=== PATIENT | male | born 1960 | race Caucasian/White ===

== ENCOUNTER 2024-11-18 13:53 | Outpatient (CLI) | payer OTHER, SELFPAY ==
--- NOTE | ~2024-11-18 | XR_ITS ---
Lumbosacral Spine: AP and lateral views Clinical History: Pain Findings: The normal lordotic curve is maintained. The vertebral bodies and posterior elements are i ntact. Mild degenerative disc changes are present throughout the lumbar spine. There is moderate to a dvanced facet arthropathy, especially from L3 through S1. The sacroiliac joints are normally outlined . Impression: Extensive facet arthropathy. Mild degenerative disc changes. Reviewed, dictated and finalized at location M. Impression: Extensive facet arthropathy. Mild degenerative disc changes.
--- OUTSIDE RECORDS SUMMARY | 2024-11-18 14:33 | XMS_ITS | Referral Summary ---
Author Organization [facility] Address [address] [place] [address] Care Team Providers Care Discharge Specialist Name Role Phone Evangelist Wahl DO Primary Care Provider [phone] Allergies No known active allergies Medications acyclovir (ZOVIRAX) 400 mg tablet Take 400 mg by mouth daily 11/04/2021 Active atorvastatin (LIPITOR) 40 mg tablet Take 40 mg by mouth daily 11/04/2021 Active OneTouch Ultra Test strip USE TO TEST BLOOD SUGAR ONCE DAILY DIRECTED 11/22/2021 Active Farxiga 10 mg tablet Take 10 mg by mouth daily 11/07/2021 Active glipiZIDE (GLUCOTROL) 5 mg tablet Take 5 mg by mouth every morning 11/05/2021 Active lisinopriL (PRINIVIL,ZESTR IL) 10 mg tablet Take 10 mg by mouth daily 11/05/2021 Active metFORMIN XR (GLUCOPHAGE XR) 500 mg 24 hr tablet Take 500 mg by mouth 2 (two) times a day 11/22/2021 Active MULTIVITAMIN ORAL Take by mouth Active cholecalciferol (VITAMIN D-3) 400 unit capsule Active ascorbic acid (VITAMIN C) 100 mg tablet Take 100 mg by mouth daily Active cyanocobalamin (Vitamin B-12) 500 mcg tabletIndicatio ns:Prevention of Vitamin B12 Deficiency Take 500 mcg by mouth daily Active HYDROcodone-lexi taminophen (NORCO) 5-325 mg per tabletIndicatio ns:Pain Take 1-2 tablets by mouth every 6 (six) hours as needed for pain 30 tablet 12/25/2021 Active Active Problems Problem Noted Date Diagnosed Date Pain in both hands 12/03/2021 Trigger middle finger of right hand 12/03/2021 Overview (12/03/2021): Added automatically from request for surgery [id number] Trigger middle finger of left hand 12/03/2021 Overview (12/03/2021): Added automatically from request for surgery [id number] Trigger ring finger of left hand 12/03/2021 Overview (12/03/2021): Added automatically from request for surgery [id number] Social History Tobacco Use Types Packs/Day Years Used Date Smoking Tobacco: Former Cigarettes Q uit: 2013 Smokeless Tobacco: Never AUDIT-C Answer Date Recorded Q1: How often do you have a drink containing alc ohol? 2-3 times a week 12/19/2021 Q2: How many drinks containi ng alcohol do you have on a typical day when you are drinking? 1 or 2 12/19/2021 Q3: How often do you have si x or more drinks on one occasion? 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 Not on file Not on file Last Filed Vital Signs Vital Sign Reading Time Taken Comments Blood Pressure 126/78 12/25/2021 9:14 AM CDT Pulse 81 12/25/2021 9:14 AM CDT Temperature 36.3 C (97.3 F) 12/25/2021 8:59 AM CDT Respiratory Rate 16 12/25/2021 9:14 AM CDT Oxygen Saturation 95% 12/25/2021 9:14 AM CDT Inhaled Oxygen Concentration - - Weight 129 kg (284 lb 7 oz) 12/25/2021 6:33 AM C DT Height 180.3 cm (5' 11) 12/25/2021 6:33 AM CDT Body Mass Index 39.67 12/25/2021 6:33 AM CDT Plan of Treatment Not on file Insurance [facility] Address: [place] [address] [facility] Address: [place] [address] Care Teams Discharge Specialist Relationship Specialty Start Date End Date Evangelist Wahl DO PCP - General Internal Medicine 11/21/21
--- OUTSIDE RECORDS SUMMARY | 2024-11-18 14:33 | XMS_ITS | Clinical Summary ---
Author Organization [facility] Address [address] [place] [address] Care Team Providers Care Fisher Eel Spear Name Role Phone Evangelist Wahl DO Primary Care Provider [phone] Allergies No known active allergies Medications acyclovir [...] (12/03/2021): Added automatically from request for surgery [id number] Trigger middle finger of left hand 12/03/2021 Overview (12/03/2021): Added automatically from request for surgery [id number] Trigger ring finger of left hand 12/03/2021 Overview (12/03/2021): Added automatically from request for surgery [id number] Surgical History Surgery Date Site/Laterality Comments HERNIA REPAIR HYDROCELE EXCISION / REPAIR PLANTAR'S WART EXCISION TRIGGER FINGER RELEASE 12/25/2021 Bilateral RT.LONG, LT.LONG & LT.RING FTS RELEASE Medical History Medical History Date Comments Sleep apnea Hiatal hernia Hypertension Diabetes mellitus (HCC) Peripheral neuropathy Allergic rhinitis Type 2 diabetes mellitus (HCC) Family History Medical History Relation Name Comments Hypertension Father Diabetes Mother Relation Name Status Comments Father Mother Social History Tobacco Use Types Packs/Day Years [...] on file 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 Gender Identity Not on file Sexual Orientation Not on file 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 Not on file Not on file Obstetrics History Last Filed Vital Signs Vital Sign Reading [...] 12/25/2021 6:33 AM CDT Plan of Treatment Health Maintenance Due Date Last Done Comments Colon Cancer Screening-Colonoscopy 1960 Depression Screening 1960 Hepatitis C Screening 1960 Prostate Cancer Screening-PSA 1960 DTaP/Tdap/Td Vaccine (1 - Tdap) 1971 Hepatitis B Screening 1978 Regular Well Visit/Exam 18-64 1978 Zoster Vaccine (1 of 2) 2010 Covid-19 Vaccine (3 - 2023-2 5 season) 2024 09/30/2020, 09/08/2020 Influenza Vaccine (Season Ended) 2025 04/25/2015 Pneumococcal vaccine <65 Aged Out No longer eligible based on patient's age to complete this topic Insurance [facility]US [facility] Address: [facility] [address] [place] [address] [facility] CHOICE PLUS [facility] HMO/PPO Address: [facility] [id number] [place] [address] Care Teams Fisher Eel Spear Relationship Specialty Start Date End Date Evangelist Wahl DO PCP - General Internal Medicine 11/21/21
== END 2024-11-18 13:54 | disposition home or self-care (01) ==
PROVIDERS: PCP Family Medicine; Visit Provider Family Medicine
DX: M51.369 Other intervertebral disc degeneration, lumbar region without mention of lumbar back pain or lower extremity pain (principal)
CPT/HCPCS: 72100

== ENCOUNTER 2024-12-13 15:44 | Outpatient (CLI) | payer OTHER, SELFPAY ==
--- NOTE | ~2024-12-13 | MR_ITS ---
MRI of the lumbar spine Clinical History: Back pain Technique: Axial T2-weighted images, and sagittal T1-weighted, T2-weighted, and T2 fat-sat images wer e acquired. Findings: There is no fracture or subluxation of the lumbar spine. Vertebral bodies maintain alignmen t. No suspicious bone marrow signal abnormality seen. At L1-L2, there is no significant disc bulge or herniation. There is moderate facet hypertrophy. No s georgina canal stenosis or neural foraminal narrowing. At L2-L3, there is minimal disc bulge with moderate facet arthropathy. No central canal stenosis or n eural foraminal narrowing. L3-L4, there is minimal disc bulge with moderate facet arthropathy. No central canal stenosis or neur al foraminal narrowing. At L4-L5, there is minimal disc bulge with severe facet arthropathy. No central canal stenosis or evelyn ral foraminal narrowing. At L5-S1, there is minimal disc bulge with severe facet arthropathy. No central canal stenosis or evelyn ral foraminal narrowing. Paravertebral soft tissues are unremarkable. Impression: Mild degenerative spondylosis overall, as above. Reviewed, dictated and finalized at location M. Impression: Mild degenerative spondylosis overall, as above.
== END 2024-12-13 15:45 | disposition home or self-care (01) ==
LOC: MICIMG 15:45
PROVIDERS: PCP Family Medicine; Visit Provider Family Medicine
DX: M47.896 Other spondylosis, lumbar region (principal)
CPT/HCPCS: 72148

== ENCOUNTER 2024-12-24 01:20 | Day surgery (SDC) | payer OTHER, SELFPAY ==
[2024-12-07 12:53] VITALS: BMI 40.1
--- OUTSIDE RECORDS SUMMARY | 2024-12-24 01:24 | XMS_ITS | Clinical Summary ---
Author Organization [facility] Address [address] [place] [address] Care Team Providers Care Tear Down Worker Name Role Phone Evangelist Wahl DO Primary Care Provider [phone] Allergies No known active allergies Medications acyclovir [...] (12/03/2021): Added automatically from request for surgery [id number] Trigger middle finger of left hand 12/03/2021 Overview (12/03/2021): Added automatically from request for surgery [id number] Trigger ring finger of left hand 12/03/2021 Overview (12/03/2021): Added automatically from request for surgery [id number] Surgical History Surgery Date Site/Laterality Comments HERNIA [...] on file 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
--- OUTSIDE RECORDS SUMMARY | 2024-12-24 01:24 | XMS_ITS | Referral Summary ---
Author Organization [facility] Address [address] [place] [address] Care Team Providers Care Die Maintenance Name Role Phone Evangelist Wahl DO Primary Care Provider [phone] Allergies No known active allergies Medications acyclovir [...] (12/03/2021): Added automatically from request for surgery [id number] Trigger middle finger of left hand 12/03/2021 Overview (12/03/2021): Added automatically from request for surgery [id number] Trigger ring finger of left hand 12/03/2021 Overview (12/03/2021): Added automatically from request for surgery [id number] Social History Tobacco Use Types Packs/Day Years [...] on file 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
[2024-12-24 06:20] VITALS: BMI 40.1
[2024-12-24] MEDS: LACTATED RINGERS 1,000 ML 150 ML IV CONT (06:32)
[2024-12-24 06:45] VITALS: BP 130/70; PULSE 85; RESP 20; TEMP 36.2; O2SAT 97
--- NOTE | 2024-12-24 07:18 | WPDANESEPPF ---
Anes - Initial Pre Proc Eval Procedure: Operation Date: 12/24/24 07:30 Proposed Procedures p Screening Colonoscopy - Christiano Herrera MD Date/Time: 12/24/24 07:18 Surgeon: Christiano Herrera MD Pre Op Diagnosis: Neoplasm screening Patient Data Age: 64 Gender: M Height: 1.78 m Weight: 127 kg Last Vital Signs Temp 36.2 C L 12/24/24 06:45 Pulse 85 12/24/24 06:45 Resp 20 12/24/24 06:45 BP 130/70 12/24/24 06:45 Pulse Ox 97 12/24/24 06:45 O2 Del Method Room Air 12/24/24 06:45 Allergies Allergy/AdvReac Type Severity Reaction Status Date / Time guaifenesin Allergy Mild HYPERACTIVE Verified 12/24/24 06:18 WITH TREMORS Home Medications ?Medication ?Instructions ?Recorded ?Confirmed ?Type blood sugar diagnostic (AventeonTouch #100 ea 11/22/21 07/02/22 Rx Ultra Test strips) lancets 33 gauge (OneTouch Delica #100 ea 11/22/21 07/02/22 Rx Lancets) acyclovir 400 mg tablet 400 mg PO DAILY #90 tabs 05/03/24 12/24/24 Rx finasteride 5 mg tablet 5 mg PO DAILY #90 tabs 06/18/24 12/24/24 Rx atorvastatin 40 mg tablet See Rx Instructions .Route 09/27/24 12/24/24 Rx .COMPLEX #90 tabs Ozempic 0.25 mg or 0.5 mg (2 0.25 mg (0.187 mL) subcut WEEKLY 10/01/24 12/24/24 Rx mg/1.5 mL) subcutaneous pen #3 mL injector (semaglutide) cyclobenzaprine 10 mg tablet 10 mg PO TID PRN muscle spasm #60 11/16/24 12/07/24 Rx tabs Farxiga 10 mg tablet See Rx Instructions .Route 11/17/24 12/24/24 Rx (dapagliflozin propanediol) .COMPLEX #90 tabs metformin 500 mg tablet See Rx Instructions .Route 12/21/24 12/24/24 Rx .COMPLEX #180 tabs glipizide 5 mg tablet 5 mg PO DAILY #90 tabs 12/23/24 12/24/24 Rx lisinopril 10 mg tablet See Rx Instructions .Route 12/23/24 12/24/24 Rx .COMPLEX #90 tabs Laboratory Tests 12/24/24 06:31 POC Capillary Glucose 192 H mg/dl (65-105) Patient hx anesthesia problems: none Family hx anesthesia problems: none Results Review: All pre-operative results and documents have been reviewed as part of the pre-operative evaluation. [facility] Family History Family History Mother Family history of diabetes mellitus in first degree relative Sibling Family history of diabetes mellitus in first degree relative Social History Social History Smoking packs per day: 1.5 Smoking cigarettes per day: 30.0 Years smoked: 20 Smoking pack-years: 30.00 Smoking status: Former smoker Tobacco type: cigarettes Smoking end date: 07/11/12 Alcohol intake: current Drinks per week: 12 Alcohol use details: beer on the weekends Substance use: never Substance use type: does not use Lack of Transportation: No Lack of Food: Never True Current Housing: I Have Housing Concerned About Future Housing: No Difficulty Paying Gas/Electric Bills: No Difficulty Paying for Meds: No Currently Unemployed: No Education: High School Diploma/GED Difficulty w/ Childcare or Family Care: No Living arrangements: alone Anes - Eval Final PreProcedure Day of Procedure 12/24/24 07:18 Patient weight: morbidly obese Heart: regular rate and rhythm Lungs: decreased breath sounds Airway: Mallampati scale class III Neurological: alert and oriented Last oral intake: >/= 8 hours ASA classification: III Emergent: no Anesthetic plan: proceed Anesthesia type and monitoring: general GIVS and standard monitoring Results Review: All pre-operative results and documents have been reviewed as part of the pre-operative evaluation. Informed Consent: The patient's anesthetic plan and its attendant risks and benefits were discussed with the patient/family/POA. Questions were solicited and answers provided to the satisfaction of the patient/family/POA.
--- NOTE | 2024-12-24 07:24 | PM.HPGS ---
History of Present Illness History of Present Illness Consent: Risks, benefits, and alternatives have been discussed and questions answered. Patient agrees to proceed with procedure. Chief complaint: Neoplasm screening Narrative: Hector Gonzalez is a 64 year old male here for screening colonoscopy, last one more than 10 years ago Review of Systems Review of Systems: All systems reviewed & are unremarkable except as noted in HPI and below PMFSH Family History Family History Mother Family history of diabetes mellitus in first degree relative Sibling Family history of diabetes mellitus in first degree relative Social History Social History Smoking packs per day: 1.5 Smoking cigarettes per day: 30.0 Years smoked: 20 Smoking pack-years: 30.00 Smoking status: Former smoker Tobacco type: cigarettes Smoking end date: 07/11/12 Alcohol intake: current Drinks per week: 12 Alcohol use details: beer on the weekends Substance use: never Substance use type: does not use Lack of Transportation: No Lack of Food: Never True Current Housing: I Have Housing Concerned About Future Housing: No Difficulty Paying Gas/Electric Bills: No Difficulty Paying for Meds: No Currently Unemployed: No Education: High School Diploma/GED Difficulty w/ Childcare or Family Care: No Living arrangements: alone Meds Home Medications and Allergies Home Medications ?Medication ?Instructions ?Recorded ?Confirmed ?Type blood sugar diagnostic (OneTouch #100 ea 11/22/21 07/02/22 Rx Ultra Test strips) lancets 33 gauge (OneTouch Delica #100 ea 11/22/21 07/02/22 Rx Lancets) acyclovir 400 mg tablet 400 mg PO DAILY #90 tabs 05/03/24 12/24/24 Rx finasteride 5 mg tablet 5 mg PO DAILY #90 tabs 06/18/24 12/24/24 Rx atorvastatin 40 mg tablet See Rx Instructions .Route 09/27/24 12/24/24 Rx .COMPLEX #90 tabs Ozempic 0.25 mg or 0.5 mg (2 0.25 mg (0.187 mL) subcut WEEKLY 10/01/24 12/24/24 Rx mg/1.5 mL) subcutaneous pen #3 mL injector (semaglutide) cyclobenzaprine 10 mg tablet 10 mg PO TID PRN muscle spasm #60 11/16/24 12/07/24 Rx tabs Farxiga 10 mg tablet See Rx Instructions .Route 11/17/24 12/24/24 Rx (dapagliflozin propanediol) .COMPLEX #90 tabs metformin 500 mg tablet See Rx Instructions .Route 12/21/24 12/24/24 Rx .COMPLEX #180 tabs glipizide 5 mg tablet 5 mg PO DAILY #90 tabs 12/23/24 12/24/24 Rx lisinopril 10 mg tablet See Rx Instructions .Route 12/23/24 12/24/24 Rx .COMPLEX #90 tabs Allergies Allergy/AdvReac Type Severity Reaction Status Date / Time guaifenesin Allergy Mild HYPERACTIVE Verified 12/24/24 06:18 WITH TREMORS Vital Signs Vital Signs - 24 hr 12/24/24 06:45 Temperature 97.2 F L Pulse Rate 85 Respiratory Rate 20 Blood Pressure 130/70 Pulse Oximetry 97 Oxygen Delivery Room Air Exam Const: General: comfortable and no acute distress HENMT: Face/Nose/Sinus: Normal nares present Eyes: General: appearance normal, both eyes and all related structures Neck: Neck: no JVD Resp: Auscultation: clear to auscultation bilaterally Cardio: Rate: regular rate Rhythm: regular rhythm GI: Inspection: non-distended GI Palp: Yes Soft to palpation Skin: General skin exam: normal color Neuro: Speech: normal speech Extrem: General: normal to inspection Psych: Mental Status: mental status grossly normal Assessment and Plan Assessment and plan (1) Colon cancer screening: Code(s): Z12.11 - Encounter for screening for malignant neoplasm of colon Status: Acute Assessment and Plan: colonoscopy
--- NOTE | 2024-12-24 07:40 | S_PTH ---
PATIENT: Hector Gonzalez LOC: [facility]#:[id number] AGE/SX: 64/M ROOM: RE12/24/[address]: Christiano Herrera MD : 1960 BED: DIS: 12/24/2024 SPEC #: [id number] RECD: 12/24/24 10:18 STATUS: ENA REJordin #: [id number] ALICE: 12/24/24 07:[address]: Christiano Herrera DEPT: [facility] Surgical RECD BY: Elizabeth Stevens ENTERED: 12/24/24 10:18 SP TYPE: Surgical OTHR DR: Mil Amezcua MD Tissues: A - Colon Polypectomy B - Colon Polypectomy Procedures: Hematoxylin and Eosin Stain Gross and Microscopic Level 4
[2024-12-24 07:45] VITALS: BP 99/63; PULSE 78; RESP 23; O2SAT 98
[2024-12-24 07:55] VITALS: BP 117/66; PULSE 76; RESP 21; O2SAT 98
[2024-12-24 08:05] VITALS: BP 117/68; PULSE 74; RESP 21; O2SAT 98
== END 2024-12-24 08:10 | disposition home or self-care (01) ==
PROVIDERS: PCP Family Medicine; Referring Provider Family Medicine; Visit Provider Internal Medicine Gastroenterology
PROC: 0DJD8ZZ Inspection of Lower Intestinal Tract, Via Natural or Artificial Opening Endoscopic (ICD-10-PCS; CPT 45378; principal; 2024-12-24 07:30)
DX: Z12.11 Encounter for screening for malignant neoplasm of colon (principal); D12.3 Benign neoplasm of transverse colon; K63.5 Polyp of colon; K64.8 Other hemorrhoids; K57.30 Diverticulosis of large intestine without perforation or abscess without bleeding; E66.01 Morbid (severe) obesity due to excess calories; Z68.41 Body mass index [BMI] 40.0-44.9, adult; Z79.85 Long-term (current) use of injectable non-insulin antidiabetic drugs; Z79.84 Long term (current) use of oral hypoglycemic drugs; Z87.891 Personal history of nicotine dependence
CPT/HCPCS: 45385; 82948; 88305; J2003; J2704; J7120

== ENCOUNTER 2025-05-06 15:19 | Outpatient (CLI) | payer OTHER, SELFPAY ==
--- NOTE | ~2025-05-06 | CT_ITS ---
EXAMINATION:CT lung screening DATE: 05/06/2025 15:35 INDICATION: Smoking history. Ex-smoker. TECHNIQUE: Computed tomography (CT) of the chest was performed without intravenous contrast. Automated exposure control and iterative reconstruction technique were employed. The dose-length product (DLP) was 339.50 mGy-cm. COMPARISON: Chest x-ray dated 02/26/2012. FINDINGS: 1 cm size benign calcified granuloma of right lower lobe with calcified lymph nodes of right hilum. No evidence of noncalcified solid nodules. No evidence of pleural effusion or pericardial effusion. Significant coronary artery calcification of left main, anterior descending and right coronary arteries. Faint calcification of aortic valve cusps. Mild aneurysmal dilation of ascending aorta measuring 4.6 cm in AP diameter. IMPRESSION: 1. Benign calcified granuloma right lower lobe and right hilum and mediastinum. No solid pulmonary nodules. Continue annual screening. Lung RADS category 2 2. significant multivessel coronary artery calcification. Mild aneurysmal dilation of ascending aorta measuring 4.6 cm in diameter. Mild calcific changes of aortic valve cusps noted aortic stenosis. Correlation with echocardiogram is recommended. Reviewed, dictated and finalized at location T. ESSING MGR IMPRESSION: 1. Benign calcified granuloma right lower lobe and right hilum and mediastinum. No solid pulmonary nodules. Continue annual screening. Lung RADS category 2 2. significant multivessel coronary artery calcification. Mild aneurysmal dilat ion of ascending aorta measuring 4.6 cm in diameter. Mild calcific changes of a ortic valve cusps noted aortic stenosis. Correlation with echocardiogram is rec ommended.
== END 2025-05-06 15:20 | disposition home or self-care (01) ==
LOC: MICIMG 15:20
PROVIDERS: PCP Family Medicine; Visit Provider Family Medicine
DX: Z12.2 Encounter for screening for malignant neoplasm of respiratory organs (principal); Z87.891 Personal history of nicotine dependence
CPT/HCPCS: 71271

== ENCOUNTER 2025-05-09 13:47 | Outpatient (CLI) | payer OTHER, SELFPAY ==
--- NOTE | ~2025-05-09 | US_ITS ---
US abdomen limited Indication: R74.01 - Elevation of levels of liver transaminase levels Comparison: None Technique: Lyons-scale and color Doppler images were obtained. Findings: LIVER: Moderate increased echogenicity of the liver. . GALLBLADDER/BILIARY: There is thickening of the gallbladder wall measuring 6 mm however there is no cholelithiasis or pericholecystic fluid. CBD 5 mm. [place] sign negative. PANCREAS: Pancreas limited by bowel gas. Right Kidney: The right kidney was not imaged. Impression: Moderate hepatic steatosis versus hepatocellular disease Reviewed, dictated and finalized at location P. ONAL SALES TRAINER Impression: Moderate hepatic steatosis versus hepatocellular disease
== END 2025-05-09 13:48 | disposition home or self-care (01) ==
LOC: MICIMG 13:47
PROVIDERS: PCP Family Medicine; Visit Provider Family Medicine
DX: R74.01 Elevation of levels of liver transaminase levels (principal); K76.0 Fatty (change of) liver, not elsewhere classified
CPT/HCPCS: 76705

== ENCOUNTER 2025-05-16 08:35 | Outpatient (CLI) | payer OTHER, SELFPAY ==
--- NOTE | 2025-05-16 08:50 | ECHO_ITS ---
Patient Info Name: Hector Gonzalez Age: 64 years : 1960 Gender: Male Ht: 70 in Wt: 285 lbs BSA: 2.58 m2 HR: 83 bpm BP: 149 / 78 mmHg Heart Rhythm: Sinus Rhythm Technical Quality: Fair Exam Date: 05/16/2025 8:55 AM Patient Status: O Admit Date: 05/16/2025 Exam Type: CA echo doppler color flow Complete two-dimensional, color flow and Doppler transthoracic echocardiogram is performed. R Developer: Trinh Meyer Attending Provider: Mil Amezcua Summary 1. Complete two-dimensional, color flow and Doppler transthoracic echocardiogram is performed. 2. Left ventricular chamber dimension is normal. 3. Left ventricular systolic function is normal, estimated at 60-65. 4. The left ventricular diastolic function is grade I diastolic dysfunction. 5. E/e' 10 is mildly elevated. 6. Left atrial chamber dimension is mildly enlarged. 7. There is mild aortic valve sclerosis. 8. The mitral valve has a moderately calcified annulus. 9. No pulmonary hypertension, estimated pulmonary arterial systolic pressure is 22 mmHg. Left Ventricle E/e' 10 is mildly elevated. Left ventricular chamber dimension is normal. Left ventricular systolic function is normal, estimated at 60-65. The left ventricular diastolic function is grade I diastolic dysfunction. Right Ventricle Right ventricular chamber dimension is normal. Right ventricular systolic function is normal and with normal TAPSE 2.5 cm. Left Atria Left atrial chamber dimension is mildly enlarged. Right Atria Right atrial chamber dimension is normal. Aortic Valve The aortic valve is trileaflet. There is mild aortic valve sclerosis. There is no aortic valve stenosis. There is no aortic valve regurgitation. Pulmonic Valve There is no pulmonic regurgitation. Mitral Valve The mitral valve has a moderately calcified annulus. There is no mitral valve stenosis. There is no mitral valve regurgitation. Tricuspid Valve There is no tricuspid valve regurgitation. No pulmonary hypertension, estimated pulmonary arterial systolic pressure is 22 mmHg. Pericardium/Pleural There is no pericardial effusion. Inferior Vena Cava Normal inferior vena cava with >50% collapse upon inspiration consistent with normal right atrial pressure, 5 mmHg. Aorta The aortic root size at the sinus of Valsalva is normal. Left Ventricular Outflow Tract Name Value Normal LVOT 2D LVOT Diameter 2.3 cm LVOT Doppler LVOT Peak Velocity 107 cm/s LVOT Peak Gradient 5 mmHg LVOT Mean Gradient 3 mmHg LVOT VTI 19 cm LVOT VTI/AV VTI Ratio 0.8 LVOT Stroke Volume 77 ml LVOT CO 6.3 l/min LVOT CI 2.4 l/min/m2 Pulmonic Valve Name Value Normal RVOT Doppler RVOT Peak Velocity 65 cm/s RVOT Peak Gradient 2 mmHg PV Doppler PV Peak Velocity 86 cm/s PV Peak Gradient 3 mmHg Mitral Valve Name Value Normal MV Diastolic Function MV E Peak Velocity 85 cm/s MV A Peak Velocity 108 cm/s MV E/A 0.8 MV Decel Time (PW) 156 ms MV Annular TDI MV E/e' (Septal) 9.9 MV E/e' (Lateral) 10.8 MV E/e' (Average) 10.4 Tricuspid Valve Name Value Normal TV Regurgitation Doppler TR Peak Velocity 205 cm/s TR Peak Gradient 17 mmHg Estimated PAP/RSVP RA Pressure 5 mmHg <=5 PA Systolic Pressure 22 mmHg <36 RV Systolic Pressure 22 mmHg <36 TV Annular TDI TV Lateral Hillary s' Velocity 11.8 cm/s >=9.5 Aorta Name Value Normal Ascending Aorta Ao Root Diameter (MM) 4.6 cm Ao Root Diam Index (MM) 1.8 cm/m2 Aortic Valve Name Value Normal AV Doppler AV Peak Velocity 135 cm/s AV Peak Gradient 7 mmHg AV Mean Gradient 4 mmHg AV VTI 25 cm AV Area (Cont Eq VTI) 3.1 cm2 >=3.0 AV Area (Cont Eq Edi) 3.2 cm2 AV DI (Edi) 0.80 AV Regurgitation 2D LVOT Area 4.0 cm2 Ventricles Name Value Normal LV Dimensions 2D/MM IVS Diastolic Thickness (2D) 1.0 cm 0.6-1.0 LVID Diastole (2D) 6.1 cm 4.2-5.8 LVIW Diastolic Thickness (2D) 1.0 cm 0.6-1.0 LVID Systole (2D) 3.4 cm 2.5-4.0 LVOT Diameter 2.3 cm LV Mass (2D Cubed) 250.57 g 88.00-224.00 LV Mass Index (2D Cubed) 97 g/m2 49-115 Relative Wall Thickness (2D) 0.33 <=0.42 LV Fractional Shortening/Ejection Fraction 2D/MM LV Fractional Shortening (2D) 44 % 25-43 LV EF (2D Teichholz) 75 % LV Diastolic Volume (4C MOD) 94 ml LV EF (4C MOD) 74 % LV Diastolic Volume (2C MOD) 69 ml LV EF (2C MOD) 71 % LV Diastolic Volume (BP MOD) 81 ml 62-150 LV Diastolic Volume Index (BP MOD) 31 ml/m2 34-74 LV Systolic Volume (BP MOD) 22 ml 21-61 LV Systolic Volume Index (BP MOD) 9 ml/m2 11-31 LV EF (BP MOD) 72 % 52-72 LV Diastolic Length (4C) 9.0 cm LV Systolic Length (4C) 6.9 cm LV Stroke Volume (4C MOD) 70 ml Atria Name Value Normal LA Dimensions LA Dimension (MM) 3.9 cm 3.0-4.0 LA Volume (4C A-L) 78 ml LA Volume (BP A-L) 80 ml RA Dimensions RA Area (4C) 16.0 cm2 <=18.0 Report Signatures
--- OUTSIDE RECORDS SUMMARY | 2025-05-16 09:01 | XMS_ITS | Clinical Summary ---
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 Name Role Phone Evangelist Wahl DO Primary Care Provider [phone] Allergies No known active allergies Medications acyclovir [...] (12/03/2021): Added automatically from request for surgery [id number] Trigger middle finger of left hand 12/03/2021 Overview (12/03/2021): Added automatically from request for surgery [id number] Trigger ring finger of left hand 12/03/2021 Overview (12/03/2021): Added automatically from request for surgery [id number] Surgical History Surgery Date Site/Laterality Comments HERNIA REPAIR HYDROCELE EXCISION / REPAIR PLANTAR'S WART EXCISION TRIGGER FINGER RELEASE 12/25/2021 Bilateral RT.LONG, LT.LONG & LT.RING FTS RELEASE Medical History Medical History Date Comments Sleep apnea Hiatal hernia Hypertension Diabetes mellitus Peripheral neuropathy Allergic rhinitis Type 2 diabetes mellitus Family History Medical History Relation Name Comments [...] on file Legal Sex Male 2:00 PM 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
== END 2025-05-16 08:36 | disposition home or self-care (01) ==
LOC: ANHCARD 08:40
PROVIDERS: PCP Family Medicine; Visit Provider Family Medicine
DX: I35.0 Nonrheumatic aortic (valve) stenosis (principal)
CPT/HCPCS: 93306